=== PATIENT | male | born 1990 | race African-American/Black ===

== ENCOUNTER 2020-02-11 10:38 | Emergency (ER) | payer OTHER ==
[2020-02-11 11:30] VITALS: BP 141/82
--- NOTE | 2020-02-11 11:48 | ER Document Report ---
Entered by FORTINO HERNANDEZ SCRIBE 02/11/20 1055 Acting as scribe for:JULIO FERMIN MD ED General - General Chief Complaint: Cough Stated Complaint: COUGH Time Seen by Provider: 02/11/20 10:47 Mode of Arrival: Ambulatory Information source: Patient Notes: This 29-year-old male patient presents to the emergency department today for COVID-19 testing. Patient reports that on February 04 he had "some symptoms of COVID-19" including a sore throat, cough, and chills but he was never seen for it at that time. Patient states his symptoms began going away on February 08 (2 days ago). Patient states that his work is requiring him to be tested for COVID-19 before he returns. Past Medical History - General Information source: Patient - Social History Smoking Status: Current Every Day Smoker Cigarette use (# per day): Yes - 1/2 PPD Frequency of alcohol use: Social Drug Abuse: None Occupation: [employer] Family History: Reviewed & Not Pertinent - Medical History Medical History: Negative Surgical Hx: Negative Review of Systems - Review of Systems Constitutional: No symptoms reported EENT: No symptoms reported Cardiovascular: No symptoms reported Respiratory: No symptoms reported Gastrointestinal: No symptoms reported Genitourinary: No symptoms reported Male Genitourinary: No symptoms reported Musculoskeletal: No symptoms reported Skin: No symptoms reported Hematologic/Lymphatic: No symptoms reported Neurological/Psychological: No symptoms reported -: Yes All other systems reviewed and negative Physical Exam - Vital signs Vitals: Temp Pulse Resp BP Pulse Ox 98.4 F 68 14 146/90 H 97 02/11/20 10:50 02/11/20 10:50 02/11/20 10:50 02/11/20 10:50 02/11/20 10:50 - Notes Notes: Physical Exam: General: Alert, appears well. HEENT: Normocephalic. Atraumatic. PERRL. Extraocular movements intact. Oropharynx clear. No posterior oropharynx erythema or exudate. Neck: Supple. Non-tender. Respiratory: No respiratory distress. Clear and equal breath sounds bilaterally. Cardiovascular: Regular rate and rhythm. Abdominal: Normal Inspection. Non-tender. No distension. Normal Bowel Sounds. Back: No gross abnormalities. Extremities: Moves all four extremities. Upper extremities: Normal inspection. Normal ROM. Lower extremities: Normal inspection. No edema. Normal ROM. Neurological: Normal cognition. AAOx4. Normal speech. Psychological: Normal affect. Normal Mood. Skin: Warm. Dry. Normal color. Course - Vital Signs Vital signs: Temp Pulse Resp BP Pulse Ox 98.3 F 82 14 141/82 H 96 02/11/20 11:29 02/11/20 11:29 02/11/20 11:29 02/11/20 11:29 02/11/20 11:29 Discharge - Discharge Clinical Impression: Encounter for laboratory testing for COVID-19 virus Condition: Stable Disposition: HOME, SELF-CARE Additional Instructions: You were tested today for the COVID-19 virus. The results usually come back in 3 days. You will be contacted with your result. Follow the instructions for self quarantine until you get the results of the COVID testing. RETURN TO THE EMERGENCY ROOM IF ANY NEW OR WORSENING SYMPTOMS. I personally performed the services described in the documentation, reviewed and edited the documentation which was dictated to the scribe in my presence, and it accurately records my words and actions.
== END 2020-02-11 11:56 | disposition home or self-care (01) ==
LOC: ER 10:38
DX: R05 Cough (principal); F17.210 Nicotine dependence, cigarettes, uncomplicated; Z20.828 Contact with and (suspected) exposure to other viral communicable diseases
CPT/HCPCS: 99282; 87635; C9803